=== PATIENT | female | born 1965 | race Caucasian/White ===

== ENCOUNTER 2017-05-26 01:22 | Emergency (ER) | payer BC ==
[~2017-05-26] VITALS: Ht 165.1 cm; Wt 78.0 kg
[~2017-05-26 01:22] MED LIST: ADVIL200 M1 PO; CELEXA10 MG PO; HYDROCODONE-AP1 EAC2 PO; PROGESTERONE CREAM TP; SYNTHROID75 MCG PO; SYNTHROID88 MCG PO; T3 COMPOUND PO
[2017-05-26] MEDS ORDERED: KEFLEX500 M4 PO (01:49)
== END 2017-05-26 03:48 ==
LOC: EDMED 01:22
DX: L03.012 Cellulitis of left finger (principal); E03.9 Hypothyroidism, unspecified; Z79.890 Hormone replacement therapy